=== PATIENT | female | born 1965 | race Caucasian/White ===

== ENCOUNTER 2017-03-13 07:44 | Emergency (ER) | payer MEDICAID, OTHER ==
[~2017-03-13] VITALS: Ht 170.2 cm; Wt 72.6 kg
[2017-03-13 07:51] VITALS: BP 161/85
== END 2017-03-13 10:04 | disposition home or self-care (01) ==
LOC: ER 07:46
DX: R19.09 Other intra-abdominal and pelvic swelling, mass and lump (principal); G89.29 Other chronic pain; L90.5 Scar conditions and fibrosis of skin; Z90.710 Acquired absence of both cervix and uterus
CPT/HCPCS: 74176